=== PATIENT | female | born 1955 | race Caucasian/White ===

== ENCOUNTER → 2020-06-21 | Outpatient (CLI) | payer OTHER ==
[~2020-06-21] MED LIST: ARMOUR THYROID PO; ASCO100018 PO; ASPI81TA45 PO; ERGO500017 PO; ESTR10TA4 PO; VITAMIN A PO; [UNRECOGNIZED DRUG - OTHER]; [UNRECOGNIZED DRUG - OTHER]; [UNRECOGNIZED DRUG - OTHER] PO; [UNRECOGNIZED DRUG - OTHER] PO; [UNRECOGNIZED DRUG - OTHER] PO; [UNRECOGNIZED DRUG - OTHER] PO; [UNRECOGNIZED DRUG - OTHER] PO; [UNRECOGNIZED DRUG - OTHER] TP
== END | disposition home or self-care (01) ==
LOC: STAR 14:52
PROVIDERS: ATTEND Orthopaedic Surgery
DX: Z01.812 Encounter for preprocedural laboratory examination (principal); Z20.828 Contact with and (suspected) exposure to other viral communicable diseases; S83.249A Other tear of medial meniscus, current injury, unspecified knee, initial encounter; X58.XXXA Exposure to other specified factors, initial encounter; Y93.89 Activity, other specified; Y92.89 Other specified places as the place of occurrence of the external cause; Y99.8 Other external cause status
CPT/HCPCS: 87635; 93005

== ENCOUNTER 2020-06-27 08:38 | Day surgery (SDC) | payer OTHER ==
[~2020-06-27] VITALS: Ht 160 cm; Wt 79.0 kg
[~2020-06-27 08:38] MED LIST changes: +ACETAMINOPHEN 325 MG TABLET PO PRN; +HYDROmorphone 1 MG/ML, 1ML INJ IM PRN; +KETOROLAC 30 MG/1 ML IVPush SCH; +ONDANSETRON 2MG/ML, 2ML IVPush PRN; +OXYcodone 5 MG/5 ML ORAL.SOL UDC PO PRN; +PROMETHAZINE 25 MG/ML, 1ML IM PRN
[2020-06-27] MEDS ORDERED: OXYcodone 5 MG/5 ML ORAL.SOL UDC PO PRN ×2 (08:45→11:00)
[2020-06-27] MEDS ORDERED: KETOROLAC 30 MG/1 ML IVPush SCH (08:45)
[2020-06-27] MEDS ORDERED: HYDROmorphone 1 MG/ML, 1ML INJ IM PRN (08:45)
[2020-06-27] MEDS ORDERED: ACETAMINOPHEN 325 MG TABLET PO PRN ×2 (08:45→11:00)
[2020-06-27] MEDS ORDERED: ONDANSETRON 2MG/ML, 2ML IVPush PRN (08:45)
[2020-06-27] MEDS ORDERED: PROMETHAZINE 25 MG/ML, 1ML IM PRN (08:45)
[2020-06-27] MEDS ORDERED: THYROID PO SCH ×2 (09:00)
[2020-06-27 09:16] VITALS: BP 160/88
[2020-06-27] MEDS ORDERED: CHLORHEXIDINE 15 ML UDC ONE (09:19)
[2020-06-27] MEDS ORDERED: CHLORHEXIDINE 15 ML UDC MM ONE (09:30)
[2020-06-27] MEDS ORDERED: LACTATED RINGERS 1,000 ML IV SCH (09:30)
[2020-06-27] MEDS ORDERED: BUPIVACAINE/PF 0.5% ONE (10:18)
[2020-06-27] MEDS ORDERED: MIDAZOLAM 1 MG/ML, 2ML ONE (10:26)
[2020-06-27] MEDS ORDERED: FENTANYL PF 100 MCG/2ML ONE (10:26)
[2020-06-27] MEDS ORDERED: PROPOFOL 100 ML ONE (10:40)
[2020-06-27] MEDS ORDERED: ALBUTEROL SULFATE 2.5 MG/3 ML NPPB PRN (11:00)
[2020-06-27] MEDS ORDERED: MEPERIDINE/PF 25MG/0.5ML IVPush PRN (11:00)
[2020-06-27] MEDS ORDERED: LABETALOL 5MG/ML, 20ML IV PRN (11:00)
[2020-06-27] MEDS ORDERED: hydrALAzine 20 MG/ML, 1ML IV PRN (11:00)
[2020-06-27] MEDS ORDERED: PROMETHAZINE 25 MG/ML, 1ML IV PRN (11:00)
[2020-06-27] MEDS ORDERED: HYDROmorphone 2 MG/ML, 1ML IVPush PRN (11:00)
[2020-06-27] MEDS ORDERED: KETOROLAC 30 MG/1 ML IV PRN (11:00)
[2020-06-27] MEDS ORDERED: FENTANYL PF 100 MCG/2ML IV PRN (11:00)
[2020-06-27] MEDS ORDERED: DIAZEPAM 5 MG/ML, 2ML IVPush PRN (11:00)
[2020-06-27] MEDS ORDERED: ACETAMINOPHEN 650 MG/20.3 ML UDC ONE (11:25)
== END 2020-06-27 12:35 | disposition home or self-care (01) ==
LOC: OUT 08:38
PROVIDERS: ATTEND Orthopaedic Surgery
DX: M23.321 Other meniscus derangements, posterior horn of medial meniscus, right knee (principal); M65.861 Other synovitis and tenosynovitis, right lower leg; M19.90 Unspecified osteoarthritis, unspecified site; M81.8 Other osteoporosis without current pathological fracture; Z79.899 Other long term (current) drug therapy; Z98.890 Other specified postprocedural states; Z82.61 Family history of arthritis; Z82.49 Family history of ischemic heart disease and other diseases of the circulatory system
CPT/HCPCS: 29881; J2250; J2704; J3010

== ENCOUNTER → 2020-09-12 | Outpatient (CLI) | payer OTHER ==
[~2020-09-12] MED LIST changes: -ACETAMINOPHEN 325 MG TABLET PO PRN; -HYDROmorphone 1 MG/ML, 1ML INJ IM PRN; -KETOROLAC 30 MG/1 ML IVPush SCH; -ONDANSETRON 2MG/ML, 2ML IVPush PRN; -OXYcodone 5 MG/5 ML ORAL.SOL UDC PO PRN; -PROMETHAZINE 25 MG/ML, 1ML IM PRN
== END | disposition home or self-care (01) ==
LOC: CFH 06:54
PROVIDERS: ATTEND Internal Medicine Cardiovascular Disease
DX: I47.1 Supraventricular tachycardia (principal); Z82.49 Family history of ischemic heart disease and other diseases of the circulatory system
CPT/HCPCS: 93306

== ENCOUNTER 2020-11-23 06:54 | Day surgery (SDC) | payer OTHER ==
[2020-11-21 11:53] LABS: ANION GAP 4 mmol/L (5-15); CALCIUM 9.5 mg/dL (8.5-10.1); CHLORIDE 107 mmol/L (98-107); CREATININE 0.85 mg/dL (0.55-1.02)
[2020-11-21 11:54] LABS: BASOPHILS % (AUTO) 1 % (0-1); EOSINOPHILS % (AUTO) 5 % (1-7); LYMPHOCYTES % (AUTO) 30 % (22-44); MEAN CORPUSCULAR HEMOGLOBIN 30.2 pg (27.0-34.8); MEAN CORPUSCULAR HGB CONC 33.9 g/dL (32.4-35.8); MEAN PLATELET VOLUME 9.6 fL (7.4-10.4); MONOCYTES % (AUTO) 7 % (2-9); NEUTROPHILS % (AUTO) 57 % (42-75); PLATELET COUNT 285 x10^3/uL (130-400); RED BLOOD COUNT 5.09 x10^6/uL (3.82-5.3); RED CELL DISTRIBUTION WIDTH 13.4 % (9.6-15.2)
[2020-11-21 11:56] LABS: INTERNATIONAL NORMALIZED RATIO 0.96 (0.93-1.1); PROTHROMBIN TIME 10.3 Seconds (9.6-11.5)
[2020-11-21 12:02] LABS: MD NO
[~2020-11-23] VITALS: Ht 157.5 cm; Wt 80.0 kg
[~2020-11-23 06:54] MED LIST changes: +ACETAMINOPHEN 650 MG/20.3 ML UDC PO PRN; +BISACODYL 10 MG SUPP PR PRN; +CEFAZOLIN PMX 2GM/50ML 50 ML IVPB SCH; +DIPHENHYDRAMINE 50 MG CAPSULE PO PRN; +EPINEPHRINE 1 MG/ML, 1ML ONE; +HYDROcodone/APAP 5/325 TABLET PO PRN; +HYDROmorphone 1 MG/ML, 1ML INJ IV PRN; +KETOROLAC 60 MG/2 ML ONE; +MAGNESIUM HYDROXIDE 8%, 30ML UDC PO PRN; +NS + 20MEQ KCL 1,000 ML IV SCH; +ONDANSETRON 2MG/ML, 2ML IV PRN; +ONDANSETRON 4 MG TABLET PO PRN; +OXYcodone IR 5MG TABLET PO PRN; +PROG100C16 PO; +ROPIvacaine/PF 0.5%, 20 ML ONE; +ROPIvacaine/PF 0.5%, 30 ML ONE; +SENNA/DOCUSATE TABLET PO PRN; +SODIUM CHLORIDE 0.9% 50 ML ONE; +TRANEXAMIC ACID 100 MG/ML, 10ML ONE; +TURM538C PO; +VANCOMYCIN 1,000 MG ONE; +ZOLPIDEM 5MG TABLET PO PRN
[2020-11-23 07:07] VITALS: BP 145/94
[2020-11-23] MEDS ORDERED: MIDAZOLAM 1 MG/ML, 2ML ONE (07:08)
[2020-11-23] MEDS ORDERED: FENTANYL PF 250 MCG/5ML ONE ×2 (07:09→08:07)
[2020-11-23] MEDS ORDERED: HALOPERIDOL 5 MG/ML IV PRN (07:30)
[2020-11-23] MEDS ORDERED: ACETAMINOPHEN 500 MG TABLET PO ONE (07:30)
[2020-11-23] MEDS ORDERED: MEPERIDINE/PF 25MG/0.5ML IVPush PRN (07:30)
[2020-11-23] MEDS ORDERED: morphine SULFATE 10 MG/ML, 1ML IVPush PRN (07:30)
[2020-11-23] MEDS ORDERED: ACETAMINOPHEN 325 MG TABLET PO PRN (07:30)
[2020-11-23] MEDS ORDERED: PROMETHAZINE 25 MG/ML, 1ML IVPush PRN (07:30)
[2020-11-23] MEDS ORDERED: CHLORHEXIDINE 15 ML UDC PO ONE (07:30)
[2020-11-23] MEDS ORDERED: SCOPOLAMINE 1MG PATCH TD ONE (07:30)
[2020-11-23] MEDS ORDERED: LACTATED RINGERS 1,000 ML IV SCH (07:30)
[2020-11-23] MEDS ORDERED: HYDROmorphone 1 MG/ML, 1ML INJ IVPush PRN (07:30)
[2020-11-23] MEDS ORDERED: OXYcodone 5 MG/5 ML ORAL.SOL UDC PO PRN (07:30)
[2020-11-23] MEDS ORDERED: LABETALOL 5MG/ML, 20ML IV PRN (07:30)
[2020-11-23] MEDS ORDERED: GABAPENTIN 300 MG CAPSULE PO ONE (07:30)
[2020-11-23] MEDS ORDERED: hydrALAzine 20 MG/ML, 1ML IV PRN (07:30)
[2020-11-23] MEDS ORDERED: PROPOFOL 50 ML ONE (07:52)
[2020-11-23] MEDS ORDERED: SCOPOLAMINE 1MG PATCH TD SCH (08:00)
[2020-11-23] MEDS ORDERED: CEFAZOLIN 1,000 MG ONE (08:11)
[2020-11-23] MEDS ORDERED: GLYCOPYRROLATE 0.2MG/1ML, 5ML ONE (08:11)
[2020-11-23] MEDS ORDERED: DEXAMETHASONE 4 MG/ML, 1ML ONE (08:11)
[2020-11-23] MEDS ORDERED: NEOSTIGMINE 1 MG/ML, 10ML ONE (08:11)
[2020-11-23] MEDS ORDERED: ROCURONIUM 10MG/ML,5ML ONE (08:11)
[2020-11-23] MEDS ORDERED: ONDANSETRON 2MG/ML, 2ML ONE (08:11)
[2020-11-23] MEDS ORDERED: PROPOFOL 10 MG/ML, 20ML ONE (08:11)
[2020-11-23] MEDS ORDERED: DOCUSATE 100 MG CAPSULE PO SCH (09:00)
[2020-11-23] MEDS ORDERED: THYROID PO SCH (09:00)
[2020-11-23] MEDS ORDERED: OXYcodone 5 MG/5 ML ORAL.SOL UDC ONE ×2 (09:08→09:11)
[2020-11-23] MEDS ORDERED: FENTANYL PF 100 MCG/2ML ONE (09:08)
[2020-11-23] MEDS: FENTANYL PF 100 MCG/2ML IV PRN ×3 (09:09→09:45)
[2020-11-23] MEDS ORDERED: ASPIRIN 81 MG TABLET EC PO SCH (18:00)
[2020-11-23] MEDS ORDERED: PROGESTERONE 100 MG CAPSULE PO SCH (21:00)
[2020-11-24] MEDS ORDERED: DEXAMETHASONE 4 MG/ML, 1ML IVPush SCH (06:00)
== END 2020-11-23 11:55 | disposition home or self-care (01) ==
LOC: OUT 06:54 → EDSTATUS 12:30
PROVIDERS: ATTEND Orthopaedic Surgery
DX: M17.11 Unilateral primary osteoarthritis, right knee (principal); M25.761 Osteophyte, right knee; G89.18 Other acute postprocedural pain; M81.0 Age-related osteoporosis without current pathological fracture; E03.9 Hypothyroidism, unspecified; I47.2 Ventricular tachycardia; Z20.822 Contact with and (suspected) exposure to COVID-19; Z79.01 Long term (current) use of anticoagulants; Z79.890 Hormone replacement therapy; Z79.899 Other long term (current) drug therapy; Z98.890 Other specified postprocedural states; Z82.61 Family history of arthritis; Z82.49 Family history of ischemic heart disease and other diseases of the circulatory system
CPT/HCPCS: 27447; 36415; 64447; 80048; 83036; 85025; 85610; 85730; 87081; 87147; 93005; 97162; 97165; C1776; J0171; J0690; J1100; J1885; J2250; J2405; J2704; J2710; J2795; J3010; J3370; J7120; U0003; U0005